=== PATIENT | male | born 1980 | race Caucasian/White ===

== ENCOUNTER 2020-10-12 20:04 | Emergency (ER) | payer SELFPAY ==
[~2020-10-12] VITALS: Ht 167.6 cm; Wt 70.0 kg
[2020-10-12 20:29] VITALS: BP 116/68
[2020-10-12 23:50] LABS: BASOPHILS % 0.4 % (0.0-2.0); EOSINOPHILS % 5.7 % (0.0-5.0); HEMATOCRIT. 45.3 % (42.0-52.0); HEMOGLOBIN. 15.3 g/dL (14.0-18.0); LYMPHOCYTES % 27.4 % (20.0-50.0); MEAN CORPUSCULAR HEMOGLOBIN 31.6 pg (28.0-32.0); MEAN CORPUSCULAR VOLUME 93.8 fL (80.0-94.0); MONOCYTES % 8.4 % (2.0-8.0); NEUTROPHILS % 58.1 % (40.0-76.0); PLATELET 279 x1000/uL (130-400); RED BLOOD CELL COUNT 4.83 mill/uL (4.7-6.1); RED CELL DISTRIBUTION WIDTH 14.3 % (11.6-14.6)
[2020-10-12 23:56] LABS: CHLORIDE 105 mEq/L (98-107)
[2020-10-13] LABS: ETHANOL BLOOD 201 mg/dL
== END 2020-10-13 00:41 | disposition left against medical advice (07) ==
LOC: ER 20:04 → EDBD 20:04 → ER 10-13 00:41
DX: F10.129 Alcohol abuse with intoxication, unspecified (principal); Y90.7 Blood alcohol level of 200-239 mg/100 ml
CPT/HCPCS: 36415; 80053; 80307; 80320; 80329; 85025; 93005; 99284; G0480